=== PATIENT | male | born 1995 | race Caucasian/White ===

== ENCOUNTER 2017-03-29 16:10 | Emergency (ER) | payer OTHER, SELFPAY ==
[2017-03-29] MEDS: IOHEXOL 300 MG/ML 100ML VIAL. IV ×2 (16:45)
[2017-03-29] MEDS: IV NORMAL SALINE 1000ML BAG 1,000 ML IV ×2 (16:58)
[2017-03-29] MEDS ORDERED: CONTRAST GIVEN MC ×2 (17:00)
[2017-03-29 17:01] LABS: ADD MAN DIFF? NO
[2017-03-29] MEDS: ONDANSETRON PF 4 MG/2 ML VIAL. IV ×2 (17:01)
[2017-03-29] MEDS: fentaNYL PF VIAL 100 MCG/2 ML VIAL IV ×2 (17:03)
[2017-03-29 17:08] LABS: BASO % 1 % (0-3); EOS % 1 % (0-3); HEMATOCRIT 45.5 % (39.0-53.0); HEMOGLOBIN 15.8 g/dL (13.0-17.5); LYMPH # 1.7 x10^3/uL (1.0-4.8); LYMPH % 21 % (24-48); MEAN CORPUSCULAR HEMOGLOBIN 30 pg (25-35); MEAN CORPUSCULAR HGB CONC 35 g/dL (31-37); MEAN CORPUSCULAR VOLUME 86 fL (79-100); MONO # 0.5 x10^3/uL (0.0-1.1); MONO % 7 % (0-9); NEUT # 5.8 x10^3uL (1.8-7.7); NEUT % 71 % (31-73); PLATELET COUNT 296 x10^3/uL (140-400); RED BLOOD COUNT 5.28 x10^6/uL (4.30-5.70); RED CELL DISTRIBUTION WIDTH 13.2 % (11.5-14.5); WHITE BLOOD COUNT 8.1 x10^3/uL (4.0-11.0)
[2017-03-29 17:17] LABS: PARTIAL THROMBOPLASTIN TIME 27 SEC (24-38); PROTHROMBIN TIME PATIENT 12.4 SEC (11.7-14.0)
[2017-03-29 17:37] LABS: ANION GAP 11 (6-14); BLOOD UREA NITROGEN 13 mg/dL (8-26); BUN/CREATININE RATIO 13 (6-20); CALCIUM 10.3 mg/dL (8.5-10.1); CARBON DIOXIDE 27 mmol/L (21-32); CHLORIDE 102 mmol/L (98-107); GFR 95.3; GLUCOSE 93 mg/dL (70-99); POTASSIUM 3.5 mmol/L (3.5-5.1); SODIUM 140 mmol/L (136-145)
[2017-03-29 17:43] LABS: ALBUMIN 4.6 g/dL (3.4-5.0); ALBUMIN/GLOBULIN RATIO 1.3 (1.0-1.7); ALK PHOS 84 U/L (46-116); ALT (SGPT) 23 U/L (16-63); AST (SGOT) 19 U/L (15-37); TOTAL BILIRUBIN 0.5 mg/dL (0.2-1.0); TOTAL PROTEIN 8.1 g/dL (6.4-8.2)
[2017-03-29 17:51] LABS: ETHANOL < 10 mg/dL (0-10)
[2017-03-29] MEDS: KETOROLAC 30 MG/ML INJ. IV ×2 (19:15)
== END 2017-03-29 19:40 | disposition home or self-care (01) ==
LOC: ER 16:10
DX: S13.4XXA Sprain of ligaments of cervical spine, initial encounter (principal); S46.912A Strain of unspecified muscle, fascia and tendon at shoulder and upper arm level, left arm, initial encounter; S83.92XA Sprain of unspecified site of left knee, initial encounter; S09.90XA Unspecified injury of head, initial encounter; R07.81 Pleurodynia; R10.11 Right upper quadrant pain; M54.6 Pain in thoracic spine; J45.909 Unspecified asthma, uncomplicated; G43.909 Migraine, unspecified, not intractable, without status migrainosus; Z91.018 Allergy to other foods; V43.52XA Car driver injured in collision with other type car in traffic accident, initial encounter; Y93.I9 Activity, other involving external motion; Y92.410 Unspecified street and highway as the place of occurrence of the external cause; Y99.8 Other external cause status
CPT/HCPCS: 36415; 70450; 71260; 72125; 73030; 73562; 74177; 80053; 85025; 85610; 85730; 96361; 96374; 96375; 99285-25; G0480; J1885; J2405; J3010; J7030; Q9967